=== PATIENT | male | born 1980 | race American Indian/Alaskan Native ===

== ENCOUNTER 2016-11-03 01:26 | Emergency (ER) | payer SELFPAY ==
[2016-11-03] MEDS ORDERED: TYLENOL ONE (01:36)
[2016-11-03] MEDS ORDERED: TYLENOL PO ONE (01:39)
[2016-11-03] MEDS ORDERED: PERCOCET 5/325 PO ONE (02:54)
--- NOTE | 2016-11-03 03:00 | Emergency Department Report ---
HPI - General Chief Complaint: Extremity Injury, Lower Time Seen by Provider: 11/03/16 02:54 - HPI HPI: This is a 36-year-old Afro[place]Citizen [place] male presents to the emergency department from work with the complaint of right knee pain after he tripped on a cord and fell directly onto his right knee. He has pain just under the kneecap and some swelling. He did not take anything for symptoms prior to presentation. He denies any past medical history. He does not have a primary care physician. No recent travel or sick contacts at home. ED Past Medical Hx - Past Medical History Previous Medical History?: No - Surgical History Past Surgical History?: No - Social History Smoking Status: Current Every Day Smoker Substance Use Type: Alcohol - Medications Home Medications: Home Medications Medication Instructions Recorded Confirmed Last Taken Type traMADol [Ultram] 50 mg PO Q4HR PRN #20 tablet 04/09/13 Unknown Rx Phenazopyridine [Pyridium] 100 mg PO Q8H #9 tablet 08/03/13 Unknown Rx Acetamin/Codeine 120-12Mg/5 ml 5 ml PO TID PRN #30 ml 07/08/14 Unknown Rx [Tylenol/Codeine] Ibuprofen [Motrin] 800 mg PO Q8H PRN #60 tablet 07/08/14 Unknown Rx HYDROcodone/APAP 5-325 [Valencia 1 each PO Q6HR PRN #20 tablet 11/03/16 Unknown Rx 5/325] ED Review of Systems ROS: Stated complaint: FALL/KNEE INJURY Other details as noted in HPI Comment: All other systems reviewed and negative Constitutional: denies: chills, fever Eyes: denies: eye pain, eye discharge, vision change ENT: denies: ear pain, throat pain Respiratory: denies: cough, shortness of breath, wheezing Cardiovascular: denies: chest pain, palpitations Gastrointestinal: denies: abdominal pain, nausea, diarrhea Genitourinary: denies: urgency, dysuria Musculoskeletal: joint swelling, arthralgia Skin: denies: rash, lesions Neurological: denies: headache, weakness, paresthesias Physical Exam - Physical Exam Vital Signs: Vital Signs 11/03/16 01:35 Temperature 98.3 F Pulse Rate 82 Respiratory 20 Rate Blood Pressure 130/89 [Right] O2 Sat by Pulse 98 Oximetry Physical Exam: GENERAL: The patient is well-developed well-nourished. HEENT: Normocephalic. Atraumatic. Extraocular motions are intact. Patient has moist mucous membranes. Pupils equal reactive to light bilaterally. NECK: Supple. Trachea is midline. CHEST/LUNGS: Clear to auscultation. There is no respiratory distress noted. HEART/CARDIOVASCULAR: Regular. There is no tachycardia. There is no gallop rub or murmur. ABDOMEN: Abdomen is soft, nontender. Patient has normal bowel sounds. There is no abdominal distention. SKIN: Skin is warm and dry. There is some mild anterior right knee swelling but no erythema or fluctuance or warmth. NEURO: The patient is awake, alert, and oriented. The patient is cooperative. The patient has no focal neurologic deficits. The patient has normal speech and gait. MUSCULOSKELETAL: There is some tenderness to palpation of the anterior right knee. Negative anterior and posterior drawer test. No laxity with valgus or varus stress. ED Course Vital Signs 11/03/16 01:35 Temperature 98.3 F Pulse Rate 82 Respiratory 20 Rate Blood Pressure 130/89 [Right] O2 Sat by Pulse 98 Oximetry ED Medical Decision Making - Radiology Data Radiology results: image reviewed interpreted by me: X-ray of the right knee shows a comminuted closed patellar fracture. - Medical Decision Making 36-year-old male presents with right knee pain after tripping on a cord at work and falling directly onto his right knee. The knee is not unstable on physical exam but he has tenderness to palpation. X-ray shows comminuted patellar fracture. Placed in a knee immobilizer and given crutches. Given pain medication here. Vital signs stable throughout his ED course. He will be discharged home to follow-up with an orthopedist in the next few days. He will remain nonweightbearing and will remain in the knee immobilizer until he follows up with the orthopedist. He will return to the ER if any worsening of symptoms or any acute distress. - Differential Diagnosis fracture, dislocation, contusion, sprain, strain Critical Care Time: No Critical care attestation.: If time is entered above; I have spent that time in minutes in the direct care of this critically ill patient, excluding procedure time. ED Disposition Clinical Impression: Closed fracture of right patella Qualifiers: Encounter type: initial encounter Fracture morphology: comminuted Fracture alignment: nondisplaced Qualified Code(s): S82.044A - Nondisplaced comminuted fracture of right patella, initial encounter for closed fracture Disposition: - TO HOME OR SELFCARE Is pt being admited?: No Condition: Stable Instructions: Patellar Fracture (ED) Additional Instructions: Please follow-up with an orthopedist in the next few days. I have given you a referral for a local orthopedist, Dr. Begum. Stay in the knee immobilizer and use crutches for nonweightbearing as much as possible until follow-up with an orthopedist. Return to the emergency department with any worsening of your symptoms or any acute distress. You've been prescribed a medication that is sedating. Therefore this medication cannot be mixed with alcohol, or taken prior to driving, working, or being responsible for children. Prescriptions: HYDROcodone/APAP 5-325 [Valencia 5/325] 1 each PO Q6HR PRN #20 tablet PRN Reason: Pain Referrals: PRIMARY CAREMD [Primary Care Provider] - 3-5 Days SOPHIA BEGUM MD [Staff Physician] - 3-5 Days Time of Disposition: 03:34
[2016-11-03 03:07] VITALS: BP 140/81
--- NOTE | 2016-11-03 07:11 | XRay Report ---
RIGHT KNEE, 4 views: History: Right knee pain. The bony architecture is intact without evidence of fracture or dislocation. Bipartite patella is noted. No significant soft tissue abnormality is seen. IMPRESSION: Right knee within normal limits.
== END 2016-11-03 03:50 | disposition home or self-care (01) ==
LOC: ED 01:26
DX: S82.041A Displaced comminuted fracture of right patella, initial encounter for closed fracture (principal); F17.210 Nicotine dependence, cigarettes, uncomplicated; W01.198A Fall on same level from slipping, tripping and stumbling with subsequent striking against other object, initial encounter; Y93.89 Activity, other specified; Y92.89 Other specified places as the place of occurrence of the external cause; Y99.8 Other external cause status

== ENCOUNTER 2016-12-01 13:56 | Outpatient (CLI) | payer OTHER ==
--- NOTE | 2016-12-01 15:20 | Magnetic Resonance Report ---
MR LOWER EXTREMITY JOINT RIGHT WITHOUT CONTRAST HISTORY: Right knee pain, right knee torn cartilage. TECHNIQUE: Multisequence, multiplanar MRI without IV contrast. COMPARISON: Right knee films performed 11/03/16. FINDINGS: The bone marrow signal is within normal limits. There is no evidence for fracture, bone lesion or osteochondral defect. Bipartite patella is again noted. There is a Wiberg type III patella femoral relationship. The medial facet of the patella appears small with mild hypoplasia of the medial femoral condyle. There is suggestion of mild diffuse cartilage thinning in the lateral compartment. The remaining intra-articular cartilage is unremarkable. There is no evidence for cartilage defect or fissure. The retropatellar cartilage is unremarkable. The medial and lateral menisci are intact. No degeneration or tear. The ACL, PCL, MCL, LCL complex and extensor complex are intact. Normal popliteus. No significant joint effusion or bursal fluid. No popliteal cyst. Impression: No cartilage defect or osteochondral defect is detected. No evidence for internal derangement. Type III Wiberg patellofemoral relationship which is of uncertain clinical significance. Correlate for patellar tracking disorder with the patient.
== END 2016-12-01 13:57 | disposition home or self-care (01) ==
LOC: MRI 13:56
PROVIDERS: ATTEND Orthopaedic Surgery
DX: M25.561 Pain in right knee (principal); W19.XXXA Unspecified fall, initial encounter; Y93.89 Activity, other specified; Y92.89 Other specified places as the place of occurrence of the external cause; Y99.8 Other external cause status; F17.200 Nicotine dependence, unspecified, uncomplicated
CPT/HCPCS: 73721

== ENCOUNTER 2019-07-17 10:22 | Emergency (ER) | payer OTHER ==
[2019-07-17 10:28] VITALS: BP 127/87
--- NOTE | 2019-07-17 11:11 | Emergency Department Report ---
Chief Complaint: Extremity Injury, Lower Stated Complaint: BLE SWOLLEN ANKLE Time Seen by Provider: 07/17/19 11:03 - HPI History of Present Illness: 39-year-old -[place] male with no past medical history presents to the emergency room for bilateral ankle swelling x4 days. Patient denies any pain no shortness of breath no chest pain. Patient reports that his job sent him to make sure he did not have high blood pressure. Patient denies any other symptoms. - Exam Vital Signs: Vital Signs 07/17/19 10:25 Temperature 98.0 F Pulse Rate 69 Respiratory 20 Rate Blood Pressure 127/87 O2 Sat by Pulse 98 Oximetry Physical Exam: Gen: alert oriented NAD Cardic: regular rate and rhythm no murmurs appreciated Resp: Clear to auscultation bilateral no wheezing no rales or rhonchi. Abdomen: Soft nontender nondistended normal bowel sounds. Extremities bilateral ankles and foot 1+ pitting edema no tenderness to palpate capillary refills less than 3 nonerythematous no ecchymosis patient ambulating without difficulty MSE screening note: Focused history and physical exam performed. Due to findings the following was ordered: 39-year-old -[place] male with no past medical history presents to the emergency room for bilateral ankle swelling x4 days. Patient denies any pain no shortness of breath no chest pain. Patient reports that his job sent him to make sure he did not have high blood pressure. Patient denies any other symptoms. Patient's vital signs are within normal limits he reports swelling has improved. Patient's blood pressure was 127/87 with a heart rate of 69 and oxygen at 98. Patient is stable to follow-up with her primary care provider. ED Disposition for MSE Disposition: Z- MED SCREENING EXAM-LEFT Is pt being admited?: No Does the pt Need Aspirin: No Condition: Stable Instructions: DASH Eating Plan (ED) Additional Instructions: Please follow a low-sodium diet which means stay away from processed foods carry out foods foods with too much salt in them. Increase your fluid intake. Elevate your legs when you get home. Referrals: PRIMARY CARE, [Primary Care Provider] - 3-5 Days SERGIO GAMEZ MD [Staff Physician] - 3-5 Days STEVE CLARKE JR, MD [Staff Physician] - 3-5 Days [facility] [Provider Group] - 3-5 Days Forms: Work/School Release Form(ED)
== END 2019-07-17 11:15 | disposition left against medical advice (07) ==
LOC: ED 10:22
DX: M25.471 Effusion, right ankle (principal); M25.472 Effusion, left ankle
CPT/HCPCS: 99281

== ENCOUNTER 2020-07-10 13:21 | Emergency (ER) | payer OTHER ==
[2020-07-10 13:58] VITALS: BP 148/106
[2020-07-10] MEDS ORDERED: IBUPROFEN 600 MG TAB PO ONE (14:01)
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
== END 2020-07-10 15:01 | disposition home or self-care (01) ==
LOC: ED 13:21
DX: S29.012A Strain of muscle and tendon of back wall of thorax, initial encounter (principal); M25.532 Pain in left wrist; F17.200 Nicotine dependence, unspecified, uncomplicated; Z79.1 Long term (current) use of non-steroidal anti-inflammatories (NSAID); Z79.899 Other long term (current) drug therapy; V49.49XA Driver injured in collision with other motor vehicles in traffic accident, initial encounter; W22.10XA Striking against or struck by unspecified automobile airbag, initial encounter; Y93.89 Activity, other specified; Y92.410 Unspecified street and highway as the place of occurrence of the external cause; Y99.8 Other external cause status

== ENCOUNTER 2021-04-09 09:59 | Emergency (ER) | payer OTHER ==
--- NOTE | 2021-04-09 12:02 | Emergency Department Report ---
Pediatric URI - HPI Chief Complaint: Sore Throat Stated Complaint: throat pain Time Seen by Provider: 04/09/21 11:14 Symptoms: Yes Sore Throat, Yes Sick Contacts, Yes Able to Tolerate Fluids, Yes Good Urine Output, No Rhinorrhea, No Ear Pain, No Cough, No Shortness of Breath, No Listless Behavior Other History: 41-year-old -[place] male presents to the emergency room for 2-day history of headache sore throat and concern for Covid exposure. Patient is not vaccinated. Denies any fever chills has taken no pain medication but has taken [id number] NyQuil. Denies any past medical history currently takes no meds and has no known drug allergies. ED Review of Systems ROS: Stated complaint: throat pain Other details as noted in HPI ED Peds URI Exam - Exam General: Vital signs noted. No distress. Alert and acting appropriately. HEENT: Yes Moist Mucous Membranes, No Pharyngeal Erythema, No Pharyngeal Exudates, No Rhinorrhea, No Conjuctival Injection, No Frontal Tenderness, No Maxillary Tenderness Ear: Neither TM Bulge, Neither TM Erythema, Neither EAC Pain, Neither EAC Discharge, Neither Cerumen Impaction Neck: No Adenopathy, No Supple Lungs: Yes Good Air Exchange, No Wheezes, No Ronchi, No Stridor, No Cough, No Labored Respirations, No Retractions, No Use of Accessory Muscles, No Other Abnormal Lung Sounds Heart: Yes Regular, No Murmur Abdomen: Yes Normal Bowel Sounds, No Tenderness, No Peritoneal Signs Skin: No Rash, No Eczema Neurologic: Alert and oriented, no deficits. Musculoskeletal: Unremarkable. ED Course Vital Signs 04/09/21 10:11 Temperature 98.4 F Pulse Rate 68 Respiratory 16 Rate Blood Pressure 147/98 [Left] O2 Sat by Pulse 100 Oximetry ED Medical Decision Making - Medical Decision Making 41-year-old -[place] male presents to the emergency room for 2-day history of headache sore throat and concern for Covid exposure. Patient is not vaccinated. Denies any fever chills has taken no pain medication but has taken [id number] NyQuil. Denies any past medical history currently takes no meds and has no known drug allergies. Discussed with patient he needs to get Covid tested. We can treat his symptoms Tylenol ibuprofen. Warm salt gargles. Critical care attestation.: If time is entered above; I have spent that time in minutes in the direct care of this critically ill patient, excluding procedure time. ED Disposition Clinical Impression: Contact with and (suspected) exposure to covid-19 Disposition: 01 HOME / SELF CARE / HOMELESS Is pt being admited?: No Does the pt Need Aspirin: No Condition: Stable Instructions: COVID-19 Frequently Asked Questions, Prevent the Spread of COVID- 19 if You Are Sick - [facility], COVID-19: How to Protect Yourself and Others - [facility] Additional Instructions: Your symptoms appear most consistent with a nonspecific viral syndrome. However, given this current pandemic, COVID-19 is in the differential of possibilities. Despite your previous negative COVID-19 test, I do recommend repeat outpatient Covid 19 testing. In the meantime, isolate/quarantine yourself and stay away from anyone who is elderly, immunocompromised or chronically ill. You can use ibuprofen every 6-8 hours and Tylenol every 4-8 hours, using the dosing on the back of the bottle, as needed for any fever or body aches. Return to the emergency department with any worsening of your symptoms, development of chest pain or shortness of breath, or with any acute distress. Referrals: PRIMARY CARE, [Primary Care Provider] - 3-5 Days Forms: Work/School Release Form(ED) Time of Disposition: 11:58
[2021-04-09 12:21] VITALS: BP 141/95
== END 2021-04-09 12:22 | disposition home or self-care (01) ==
LOC: ED 09:59
DX: J02.9 Acute pharyngitis, unspecified (principal); Z20.822 Contact with and (suspected) exposure to COVID-19
CPT/HCPCS: 99282